=== PATIENT | female | born 1995 | race American Indian/Alaskan Native ===

== ENCOUNTER 2018-08-15 20:26 | Emergency (ER) | payer MEDICAID ==
[2018-08-15] MEDS ORDERED: BENADRYL IV ONE (20:59)
[2018-08-15] MEDS ORDERED: NACL 0.9% 1000 ML 1,000 ML IV ONE (20:59)
[2018-08-15] MEDS ORDERED: SOLU-Medrol IV ONE (21:00)
--- NOTE | 2018-08-15 21:20 | Emergency Department Report ---
ED General Adult HPI - General Chief complaint: Allergic Reaction Stated complaint: POSS ALLERGIC REACTION Time Seen by Provider: 08/15/18 20:59 Source: patient Mode of arrival: Ambulatory Limitations: No Limitations - History of Present Illness Initial comments: Ms. Ruiz is a 22 yo female who presents with tongue burning, abdominal pain, headache, numbness in fingers after eating sushi for first time. No hx of previous allergic reaction. Denies lip, tongue swelling. No dyspnea. -: Sudden Location: head, face, mouth, abdomen Quality: burning Consistency: constant Improves with: other (time) Worsens with: none Associated Symptoms: headaches - Related Data Allergies Allergy/AdvReac Type Severity Reaction Status Date / Time Fish Containing Products Allergy Headache Verified 08/15/18 21:33 ED Review of Systems ROS: Stated complaint: POSS ALLERGIC REACTION Other details as noted in HPI Comment: All other systems reviewed and negative Constitutional: denies: fever, malaise Respiratory: denies: cough Cardiovascular: denies: chest pain ED Past Medical Hx - Past Medical History Previous Medical History?: No - Surgical History Past Surgical History?: No - Social History Smoking Status: Never Smoker Substance Use Type: None ED Physical Exam - General Limitations: No Limitations General appearance: alert, in no apparent distress - Head Head exam: Present: atraumatic, normocephalic - Eye Eye exam: Present: normal appearance - ENT ENT exam: Present: mucous membranes moist, other (normal lips and tongue size) - Neck Neck exam: Present: normal inspection, full ROM. Absent: tenderness, meningismus - Respiratory Respiratory exam: Present: normal lung sounds bilaterally. Absent: respiratory distress, wheezes, rales, rhonchi - Cardiovascular Cardiovascular Exam: Present: regular rate, normal rhythm, normal heart sounds. Absent: systolic murmur, diastolic murmur, rubs, gallop - GI/Abdominal GI/Abdominal exam: Present: soft, normal bowel sounds. Absent: distended, tenderness, guarding, rebound - Extremities Exam Extremities exam: Present: normal inspection - Back Exam Back exam: Present: normal inspection - Neurological Exam Neurological exam: Present: alert, oriented X3 - Psychiatric Psychiatric exam: Present: normal affect, normal mood - Skin Skin exam: Present: warm, dry, intact, normal color. Absent: rash ED Course Vital Signs 08/15/18 08/15/18 08/15/18 20:31 20:37 21:39 Temperature 97.8 F 97.8 F Pulse Rate 84 72 Respiratory 16 20 19 Rate Blood Pressure 127/70 Blood Pressure 127/70 [Left] O2 Sat by Pulse 99 100 99 Oximetry ED Medical Decision Making - Medical Decision Making Ms. Ruiz presents with symptoms of scromboid poisoning. given IV famotidine and IV methyprednisolone Also given IVF. Also given medications for persistent headache dc'd home with verbal and written education do not suspect anaphylaxis with this presentation. However, patient is instructed to eat seafood with caution Critical care attestation.: If time is entered above; I have spent that time in minutes in the direct care of this critically ill patient, excluding procedure time. ED Disposition Clinical Impression: Scombroid fish poisoning Disposition: DC-01 TO HOME OR SELFCARE Is pt being admited?: No Does the pt Need Aspirin: No Condition: Stable Forms: Work/School Release Form(ED)
[2018-08-15] MEDS ORDERED: TYLENOL ONE ×2 (21:23→21:57)
[2018-08-15] MEDS ORDERED: ZOFRAN ONE (21:31)
[2018-08-15] MEDS ORDERED: ZOFRAN IV ONE (21:34)
[2018-08-15] MEDS ORDERED: TYLENOL PO ONE ×2 (21:40→21:50)
[2018-08-15] MEDS ORDERED: MORPHINE IV ONE (22:38)
[2018-08-15] MEDS ORDERED: TORADOL IV ONE (22:38)
[2018-08-15] MEDS ORDERED: PEPCID IV ONE (22:39)
[2018-08-16] MEDS: NORCO 5/325 PO ONE ×2 (00:43→01:02)
[2018-08-16] MEDS: ZOFRAN ODT PO ONE ×2 (00:43→01:03)
[2018-08-16 01:05] VITALS: BP 127/67
[2018-08-16] MEDS ORDERED: TYLENOL PO ONE ×2 (21:40→21:55)
== END 2018-08-16 01:04 | disposition home or self-care (01) ==
LOC: ED 20:26
DX: T61.11XA Scombroid fish poisoning, accidental (unintentional), initial encounter (principal); Z91.013 Allergy to seafood; Y92.89 Other specified places as the place of occurrence of the external cause
CPT/HCPCS: 96374; 96375; 99283; J1200; J1885; J2270; J2405; J2930; J7030; Q0162